=== PATIENT | female | born 1990 | race Two or more races ===

== ENCOUNTER 2017-12-06 18:54 | Emergency (ER) | payer BC, MEDICAID ==
[~2017-12-06] VITALS: Ht 170.2 cm; Wt 86.2 kg
[~2017-12-06 18:54] MED LIST: AZIT500T4 PO
[2017-12-06 19:43] VITALS: BP 136/89
== END 2017-12-06 20:45 | disposition left against medical advice (07) ==
LOC: ER 18:54
DX: R51 Headache (principal); R11.0 Nausea; Z53.21 Procedure and treatment not carried out due to patient leaving prior to being seen by health care provider

== ENCOUNTER 2024-08-22 23:43 | Emergency (ER) | payer BC, MEDICAID ==
[~2024-08-22] VITALS: Ht 165.1 cm; Wt 108.0 kg
[~2024-08-22 23:43] MED LIST changes: -AZIT500T4 PO; +AZIT500T66 PO
[2024-08-22 23:59] VITALS: BP 132/77; PULSE 88; RESP 16; O2SAT 97
[2024-08-23 00:24] LABS: Basophils # (auto) 0.1 10 ^3/uL (0-0.2); Basophils % (auto) 0.5 % (0.0-2.0); Eosinophils # (auto) 0.5 10 ^3/uL (0-0.8); Eosinophils % (auto) 3.9 % (0.0-7.0); Hematocrit 35.5 % (36.0-46.0); Hemoglobin 12.1 g/dL (12.2-16.2); Lymphocytes # (auto) 2.8 10 ^3/uL (0.4-5.4); Lymphocytes % (auto) 19.6 % (10.0-50.0); Mean Corpuscular Hemoglobin 29.3 pg (28.0-32.0); Mean Corpuscular Volume 86.1 fL (80.0-100.0); Monocytes # (auto) 0.9 10 ^3/uL (0-1.3); Monocytes % (auto) 6.6 % (0.0-12.0); Neutrophils # (auto) 9.9 10 ^3/uL (1.6-8.6); Neutrophils % (auto) 69.4 % (37.0-80.0); Platelet Count (auto) 339 10^3/uL (140-450); Red Blood Cells 4.13 10^6/uL (4.0-5.20); White Blood Cell 14.2 10^3/uL (4.4-10.8)
[2024-08-23 00:24] LABS: Urine Bacteria None Seen /hpf (None Seen)
[2024-08-23 00:37] LABS: Chloride 107 mmol/L (98-107); Potassium 3.8 mmol/L (3.5-5.1); Sodium 136 mmol/L (136-145)
[2024-08-23 00:38] LABS: Anion Gap 7 (5-15); Carbon Dioxide 22 mmol/L (20-31)
[2024-08-23 00:39] LABS: Calcium 9.2 mg/dL (8.7-10.4)
[2024-08-23 00:43] LABS: Blood Urea Nitrogen 9 mg/dL (9-23); Glucose 104 mg/dL (74-106)
[2024-08-23] MEDS: ACETAMINOPHEN 500 MG TAB PO ONE (00:54)
[2024-08-23 01:05] LABS: Urine Blood 1+ /uL (Negative); Urine Clarity Clear (Clear); Urine Color Light-Yellow (Yellow); Urine Mucus FEW (None Seen); Urine Protein, UAD Negative (Negative); Urine Specific Gravity 1.028 (1.001-1.035); Urine Urobilinogen Normal (Negative); Urine WBC 2 /hpf (0 - 5); Urine pH 5.5 (5.0-9.0)
== END 2024-08-23 04:02 | disposition left against medical advice (07) ==
LOC: ER 23:43
DX: O26.891 Other specified pregnancy related conditions, first trimester (principal); R10.2 Pelvic and perineal pain; Z3A.01 Less than 8 weeks gestation of pregnancy; Z88.0 Allergy status to penicillin; Z79.899 Other long term (current) drug therapy
CPT/HCPCS: 36415; 76801; 76817; 80048; 81001; 84702; 85025